=== PATIENT | male | born 1980 | race Hispanic/Latino ===

== ENCOUNTER 2019-04-26 09:45 | Emergency (ER) | payer OTHER, SELFPAY ==
[2019-04-26 10:39] LABS: BASOPHILS % (AUTO) 0.8 % (0.0-5.0); EOSINOPHILS % (AUTO) 3.6 % (0.0-8.0); HEMATOCRIT 35.4 % (42-54); LYMPHOCYTES % (AUTO) 27.7 % (21.0-51.0); MEAN CORPUSCULAR HEMOGLOBIN 29.4 pg (27.0-33.0); MEAN CORPUSCULAR HGB CONC 34.1 g/dL (32.0-36.0); MEAN CORPUSCULAR VOLUME 86.2 fL (79-99); MONOCYTES % (AUTO) 6.6 % (3.0-13.0); NEUTROPHILS % (AUTO) 61.3 % (40.0-77.0); PLATELET COUNT (AUTO) 383 K/uL (130-400); RED CELL DISTRIBUTION WIDTH 14.6 % (11.0-15.5); WHITE BLOOD COUNT (AUTO) 7.6 K/uL (4.8-10.8)
[2019-04-26 10:46] LABS: CREATININE 0.9 mg/dL (0.5-1.5); POTASSIUM 3.6 mmol/L (3.5-5.1)
[2019-04-26 10:51] LABS: INR 0.9 (0.85-1.15); PARTIAL THROMBOPLASTIN TIME 30.6 SEC (26.3-35.5); PROTHROMBIN TIME 9.5 SEC (9.6-11.6)
[2019-04-26] MEDS ORDERED: KETOROLAC TROMETHAMINE 15MG/ML ONE (10:57)
[2019-04-26 11:08] LABS: ALBUMIN 3.5 g/dL (3.5-5.0); BILIRUBIN,TOTAL 0.4 mg/dL (0.2-1.0); TOTAL PROTEIN, SERUM 7.6 g/dL (6.0-8.3)
[2019-04-26 12:35] LABS: AMPHET/METH SCREEN,URINE NEGATIVE (NEGATIVE); BARBITURATE SCREEN, URINE NEGATIVE (NEGATIVE); BENZODIAZEPINES SCREEN,URINE NEGATIVE (NEGATIVE); CANNABINOID SCREEN,URINE NEGATIVE (NEGATIVE); COCAINE SCREEN,URINE NEGATIVE (NEGATIVE); OPIATE SCREEN,URINE POSITIVE (NEGATIVE); PHENCYCLIDINE SCREEN,URINE NEGATIVE (NEGATIVE)
== END 2019-04-26 14:30 | disposition home or self-care (01) ==
LOC: EDH 09:45
DX: R07.89 Other chest pain (principal); E11.9 Type 2 diabetes mellitus without complications; I10 Essential (primary) hypertension; E78.00 Pure hypercholesterolemia, unspecified; Z72.0 Tobacco use
CPT/HCPCS: 36415; 71045; 80053; 80305; 82550; 83874; 84484 ×2; 85025; 85378; 85610; 85730; 93005 ×2; 96374; 99285; J1885

== ENCOUNTER 2021-10-20 10:08 | Emergency (ER) | payer SELFPAY ==
[~2021-10-20] VITALS: Ht 172.7 cm; Wt 124.7 kg
[2021-10-20 10:42] VITALS: BP 132/78
[2021-10-20] MEDS ORDERED: D-ME118S47 PO (11:41)
[2021-10-20] MEDS ORDERED: IBUP-2070 PO (11:41)
[2021-10-20] MEDS ORDERED: AZIT1PAC7 PO (11:41)
[2021-10-20] MEDS ORDERED: ALBUTEROL INHALER 90MCG/INH IH SCH (12:00)
[2021-10-20] MEDS ORDERED: IBUPROFEN 600 MG TABLET PO SCH (12:00)
== END 2021-10-20 12:01 | disposition home or self-care (01) ==
LOC: EDH 10:08
DX: J45.909 Unspecified asthma, uncomplicated (principal); B34.9 Viral infection, unspecified; Z20.822 Contact with and (suspected) exposure to COVID-19; E11.9 Type 2 diabetes mellitus without complications; E78.00 Pure hypercholesterolemia, unspecified; I10 Essential (primary) hypertension; Z79.1 Long term (current) use of non-steroidal anti-inflammatories (NSAID); Z88.5 Allergy status to narcotic agent
CPT/HCPCS: 87426; 87804; 87880

== ENCOUNTER 2022-12-27 09:28 | Emergency (ER) | payer OTHER ==
[~2022-12-27] VITALS: Ht 170.2 cm; Wt 127.0 kg
[~2022-12-27 09:28] MED LIST: AZIT1PAC7 PO; D-ME118S47 PO; IBUP-2070 PO
[2022-12-27] MEDS ORDERED: KETOROLAC 15MG/ML VIAL (15MG/ML) IV ONE (10:00)
[2022-12-27] MEDS ORDERED: 0.9%NACL 1000ML 1,000 ML IV ONE (10:00)
[2022-12-27] MEDS ORDERED: TETANUS/DIPHTHERIA TOXOID [ADULT] 0.5 ML VIAL IM ONE (10:00)
[2022-12-27 10:03] LABS: BASOPHILS % (AUTO) 0.4 % (0.0-5.0); EOSINOPHILS % (AUTO) 2.8 % (0.0-8.0); LYMPHOCYTES % (AUTO) 20.4 % (21.0-51.0); MEAN CORPUSCULAR HEMOGLOBIN 28.4 pg (27.0-33.0); MEAN CORPUSCULAR HGB CONC 31.5 g/dL (32.0-36.0); MEAN CORPUSCULAR VOLUME 90.1 fL (79-99); MONOCYTES % (AUTO) 6.3 % (3.0-13.0); NEUTROPHILS % (AUTO) 69.6 % (40.0-77.0); PLATELET COUNT (AUTO) 419 K/uL (130-400); RED BLOOD CELL COUNT(AUTO) 4.55 MIL/uL (4.50-6.20); RED CELL DISTRIBUTION WIDTH 14.7 % (11.0-15.5)
[2022-12-27 10:10] LABS: APPEARANCE,URINE CLEAR (CLEAR); BILIRUBIN,URINE NEGATIVE (NEGATIVE); GLUCOSE, URINE (UA) NEGATIVE (NEGATIVE); KETONES,URINE NEGATIVE (NEGATIVE); LEUKOCYTE ESTERASE ,URINE NEGATIVE Leu/uL (NEGATIVE); NITRATE,URINE NEGATIVE (NEGATIVE); OCCULT BLOOD,URINE NEGATIVE (NEGATIVE); PH,URINE 5.5 (5.0-8.0); PROTEIN,URINE NEGATIVE (NEGATIVE); UROBILINOGEN,URINE 0.2 mg/dL (0.2-1.0)
[2022-12-27 10:12] LABS: POTASSIUM 3.9 mmol/L (3.5-5.1)
[2022-12-27 10:17] LABS: ALBUMIN 3.8 g/dL (3.5-5.0); MAGNESIUM 2.1 mg/dL (1.80-2.40)
[2022-12-27 10:21] LABS: COLOR,URINE LIGHT-YELLOW (YELLOW)
[2022-12-27] MEDS ORDERED: BACITRACIN 28.4 GM OINT TP ONE (10:30)
[2022-12-27] MEDS ORDERED: BACITRACIN 1 EACH PACKET TP ONE (10:46)
[2022-12-27] MEDS ORDERED: BACI30OI6 TP (10:48)
[2022-12-27 11:29] VITALS: BP 128/75
== END 2022-12-27 11:31 | disposition home or self-care (01) ==
LOC: EDH 09:28
DX: S60.512A Abrasion of left hand, initial encounter (principal); S00.512A Abrasion of oral cavity, initial encounter; T75.4XXA Electrocution, initial encounter; R51.9 Headache, unspecified; M54.2 Cervicalgia; E11.9 Type 2 diabetes mellitus without complications; E78.00 Pure hypercholesterolemia, unspecified; I10 Essential (primary) hypertension; Z79.1 Long term (current) use of non-steroidal anti-inflammatories (NSAID); Z79.2 Long term (current) use of antibiotics; Z79.899 Other long term (current) drug therapy; Z88.8 Allergy status to other drugs, medicaments and biological substances; W86.8XXA Exposure to other electric current, initial encounter; Y93.89 Activity, other specified; Y92.89 Other specified places as the place of occurrence of the external cause; Y99.8 Other external cause status
CPT/HCPCS: 99285; 70450; 96374; 96361; 82550; 83735; 84484; 80053; 85025; 81003; 36415; 90714; 72125; 90471; 93005; J7030; J1885

== ENCOUNTER 2023-02-25 11:36 | Emergency (ER) | payer OTHER ==
[~2023-02-25] VITALS: Ht 182.9 cm; Wt 122.5 kg
[~2023-02-25 11:36] MED LIST changes: +BACI30OI6 TP
[2023-02-25 11:38] VITALS: BP 132/81
[2023-02-25] MEDS ORDERED: 0.9%NACL 1000ML 1,000 ML IV ONE (13:00)
[2023-02-25] MEDS ORDERED: CLINDAMYCIN IVPB 600MG/50ML 50 ML IV SCH (13:00)
== END 2023-02-25 13:56 | disposition left against medical advice (07) ==
LOC: EDH 11:36
DX: N63.0 Unspecified lump in unspecified breast (principal); N64.4 Mastodynia; I10 Essential (primary) hypertension; E11.9 Type 2 diabetes mellitus without complications; E78.00 Pure hypercholesterolemia, unspecified; Z79.899 Other long term (current) drug therapy; Z98.890 Other specified postprocedural states; Z88.8 Allergy status to other drugs, medicaments and biological substances
CPT/HCPCS: 99281

== ENCOUNTER 2023-03-14 11:03 | Emergency (ER) | payer OTHER ==
[~2023-03-14] VITALS: Ht 170.2 cm; Wt 122.5 kg
[2023-03-14 11:07] VITALS: BP 128/65
[2023-03-14] MEDS ORDERED: SULF1TAB42 PO (12:03)
[2023-03-14] MEDS ORDERED: CEPH500B PO (12:03)
== END 2023-03-14 12:04 | disposition left against medical advice (07) ==
LOC: EDH 11:03
DX: N64.4 Mastodynia (principal); N63.0 Unspecified lump in unspecified breast; I10 Essential (primary) hypertension; E11.9 Type 2 diabetes mellitus without complications; E78.00 Pure hypercholesterolemia, unspecified; G89.29 Other chronic pain; Z79.899 Other long term (current) drug therapy; Z98.890 Other specified postprocedural states; Z88.5 Allergy status to narcotic agent
CPT/HCPCS: 71045

== ENCOUNTER → 2024-07-05 | Outpatient (CLI) | payer SELFPAY ==
[~2024-07-05] MED LIST changes: +BROM118S48 PO; +CEPH500B PO; -D-ME118S47 PO; +SULF1TAB42 PO
== END | disposition home or self-care (01) ==
LOC: RAH 15:27
PROVIDERS: ATTEND Family Medicine
DX: M47.817 Spondylosis without myelopathy or radiculopathy, lumbosacral region (principal); M54.50 Low back pain, unspecified; Z98.890 Other specified postprocedural states
CPT/HCPCS: 72100

== ENCOUNTER 2025-04-01 13:34 | Emergency (ER) | payer OTHER ==
[~2025-04-01] VITALS: Ht 170.2 cm; Wt 122.5 kg
[2025-04-01 14:03] VITALS: BP 103/72; PULSE 76; RESP 16; TEMP 98.2; O2SAT 96
[2025-04-01 14:09] LABS: RAPID GROUP A STREP negative (NEGATIVE)
[2025-04-01 14:14] LABS: SARS-CoV-2, RNA, NAAT NEGATIVE SARS CoV-2 (NEGATIVE)
[2025-04-01 14:19] LABS: INFLUENZA TYPE A Negative For Type A (NEGATIVE); INFLUENZA TYPE B Negative For Type B (NEGATIVE)
--- NOTE | 2025-04-01 15:08 | HMCIMG ---
EXAM: CR Chest, 1 View. CLINICAL HISTORY: SOB COMPARISON: None provided. FINDINGS: LUNGS: The lungs show no infiltrate or other acute finding. PLEURAL SPACES: No evidence of pleural effusion or pneumothorax. MEDIASTINUM: Cardiac size and mediastinal contours within normal limits. BONES: No aggressive appearing osseous lesion seen. Stimulator leads project over the thoracic central canal. IMPRESSION: No acute cardiopulmonary pathology is evident. /Orick
[2025-04-01] MEDS ORDERED: PRED10TA3 PO (15:49)
[2025-04-01] MEDS ORDERED: ALBUHFA IH (15:49)
[2025-04-01] MEDS ORDERED: AZIT250T9 PO (15:49)
--- NOTE | 2025-04-01 15:49 | ERN ---
General Chief Complaint: Cough Stated Complaint: COUGH, CONGESTION, SOB W/ COUGH Time Seen by MD: 14:09 History of Present Illness Initial Comments 45-year-old male came in for cough. Allergies: Coded Allergies: fentanyl (Verified Allergy, Unknown, 04/26/19) Home Meds Active Scripts Sulfamethoxazole/Trimethoprim (Bactrim Ds Tablet) 1 Each Tablet, 1 TAB PO BID for 7 Days, #14 TAB 0 Refills Prov:ANALILIA BERNAL V [employer] 03/14/23 Cephalexin Monohydrate (Keflex) 500 Mg Cap, 500 MG PO QID for 7 Days, #28 CAP Prov:ANALILIA BERNAL V [employer] 03/14/23 Bacitracin (Bacitracin) 28.4 Gm Oint...g., 28.4 GM TP TID, #1 TUBE Prov:PAMELA TINAJERO [facility] 12/27/22 Ibuprofen (Ibuprofen) 600 Mg Tablet, 600 MG PO Q6H PRN for PAIN, #30 TAB Prov:ROSARIO MEJIA MD 10/20/21 D-Methorphan Hb/P-Epd HCl/Bpm (Bromfed Dm Cough Syrup) 118 Ml Syrup, 10 ML PO QID, #120 ML Prov:ROSARIO MEJIA MD 10/20/21 Azithromycin (Azithromycin) 1 Gm Packet, 1 GM PO AD, #1 PKT Prov:ROSARIO MEJIA MD 10/20/21 Past Medical History Past Medical History: Depression, Diabetes-Type II, High Cholesterol, Hypertension Medical History Other: CHRONIC PAIN:MORPHINE DAILY Past Surgical History: Other Surgical History Other: SPINAL SURGERY 2003 Social History Social History: Negative, Lives with family ROS Dictation Cough Physical Exam Physical Exam Dictation Vital Signs reviewed General Appearance: Alert, oriented x 3, no acute distress, well developed, nourished. Head and Face: non-traumatic. Eyes: PERRL, pink conjunctivas, eyelid no trauma, anterior chamber with arcus senilis. Ears: Pinnas intact and no signs of trauma or erythema ear canals clear and no discharge TM no erythema Nose: No discharge, no bleeding. Oropharynx: Mouth normal, tongue pink, pharynx clear,no erythema, tonsils no exudates, no abscesses noted, mucous membrane moist Neck: Supple, non-tender, no thyromegaly, no masses, no JVD, no bruits Breast:Deferred Chest:No tenderness, no crepitus, no paradoxical movement, no retractions Lungs:Clear, well-ventilated, symmetric, no rales, no wheezing, no rhonchi, no stridor, good breath sounds bilaterally Heart: Regular rate, regular rhythm, no murmur, no gallops Vascular: no peripheral edema, Abdomen: Soft, positive bowel sounds, nondistended, no guarding, nontender, no rebound, no masses no hepatomegaly, no splenomegaly, no Garcia's sign, no hernias. Rectal: Deferred Genital: Deferred Neurological: Normal speech, motor function intact, sensory function intact Musculoskeletal: Neck nontender, full range of motion, back nontender, full range of motion, Extremities: nontender, full range of motion Skin: Color pink, dry, no turgor, no rash, no lacerations, no abrasions, no contusions. Lymphatic: Deferred Results Laboratory and Microbiology Lab and Micro Result Laboratory Tests Test 04/01/25 13:51 Influenza Type A Antigen Negative For Type A Influenza Type B Antigen Negative For Type B SARS-CoV-2, RNA, NAAT NEGATIVE SARS CoV-2 Group A Streptococcus Rapid negative (NEGATIVE) MDM MDM: Differential diagnosis: There are no social concerns with this patient. Prescription drug management Prescriptions will include: Medical management and examination interpretation discussions were had by me with other qualified healthcare professionals as indicated for the patient's care. ED Course Orders Procedure Category Date Status Time Covid Rna Naat LAB 04/01/25 Complete 13:39 Influenza Type A & B, LAB 04/01/25 Complete Rapid 13:39 Rapid (Group A Strep) LAB 04/01/25 Complete 13:39 Chest 1vw RAD 04/01/25 Resulted 13:39 Vital Signs Date Time Temp Pulse Resp B/P (MAP) Pulse Ox O2 Delivery O2 Flow Rate FiO2 04/01/25 14:03 98.2 76 16 103/72 96 Room Air* 0 21 04/01/25 13:35 98.2 76 16 103/72 96 Room Air 0 DX & DISP Disposition: Discharge Departure Impression: Primary Impression: Bronchitis Condition: Stable Scripts Prednisone (Prednisone) 10 Mg Tablet 1 TAB PO BID for 5 Days, #10 TAB 0 Refills Prov: RADHA VAUGHN MD 04/01/25 Albuterol Sulfate (Ventolin Hfa/Proventil Hfa/Proair Hfa) 90 Mcg Puff 2 PUFF IH BID for 7 Days, #1 INHALER 0 Refills Prov: RADHA VAUGHN MD 04/01/25 Azithromycin (Azithromycin) 250 Mg Tablet 1 TAB PO AD for 5 Days, #6 TAB 0 Refills 2 the first day followed by 1 for days 2-5 Prov: RADHA VAUGHN MD 04/01/25 Referrals: DULCE MARIA FLOWERS MD (PCP) RADHA VAUGHN MD Apr 01, 2025 15:49
[2025-04-01] MEDS: cefTRIAXone 500MG VIAL IM SCH (16:10)
== END 2025-04-01 16:15 | disposition home or self-care (01) ==
LOC: EDH 13:34
DX: J40 Bronchitis, not specified as acute or chronic (principal); E11.9 Type 2 diabetes mellitus without complications; E78.00 Pure hypercholesterolemia, unspecified; I10 Essential (primary) hypertension; Z88.5 Allergy status to narcotic agent; Z20.822 Contact with and (suspected) exposure to COVID-19; Z79.899 Other long term (current) drug therapy
CPT/HCPCS: 99284; 71045; 87635; 87880; 87804 ×2; 96372; J0696

== ENCOUNTER 2025-05-30 12:31 | Emergency (ER) | payer SELFPAY ==
[~2025-05-30] VITALS: Ht 170.2 cm; Wt 127.0 kg
[~2025-05-30 12:31] MED LIST changes: +ALBUHFA IH; +AZIT250T9 PO; +IBUP-1492 PO; -IBUP-2070 PO; +PRED10TA3 PO
--- NOTE | 2025-05-30 12:37 | ERN ---
ED Note History of Present Illness Stated Complaint: SOB Chief Complaint: Shortness of Breath Time Seen by MD: 12:35 Dictation: PATIENT IS A 45-YEAR-OLD ASTHMATIC MALE COMING IN TODAY WITH SHORTNESS A BREATH LOSS OF TASTE AND SMELL OVER THE LAST TWO DAYS. NO FEVER NO CHILLS. STATES HE WAS EXPOSED TO COVID IN HIS WORRIED HE MAY HAVE COVID. STATES HIS PRIMARY CARE DOCTOR IS OUT OF TOWN. HAS BEEN USING HIS RESCUE INHALER Allergies: Coded Allergies: fentanyl (Verified Allergy, Unknown, 04/26/19) Home Meds Active Scripts Prednisone (Prednisone) 10 Mg Tablet, 1 TAB PO BID for 5 Days, #10 TAB 0 Refills Prov:RADHA VAUGHN MD 04/01/25 Albuterol Sulfate (Ventolin Hfa/Proventil Hfa/Proair Hfa) 90 Mcg Puff, 2 PUFF IH BID for 7 Days, #1 INHALER 0 Refills Prov:RADHA VAUGHN MD 04/01/25 Azithromycin (Azithromycin) 250 Mg Tablet, 1 TAB PO AD for 5 Days, #6 TAB 0 Refills 2 the first day followed by 1 for days 2-5 Prov:RADHA VAUGHN MD 04/01/25 Sulfamethoxazole/Trimethoprim (Bactrim Ds Tablet) 1 Each Tablet, 1 TAB PO BID for 7 Days, #14 TAB 0 Refills Prov:ANALILIA BERNAL V [facility] 03/14/23 Cephalexin Monohydrate (Keflex) 500 Mg Cap, 500 MG PO QID for 7 Days, #28 CAP Prov:ANALILIA BERNAL V [facility] 03/14/23 Bacitracin (Bacitracin) 28.4 Gm Oint...g., 28.4 GM TP TID, #1 TUBE Prov:PAMELA TINAJERO [employer] 12/27/22 Ibuprofen (Ibuprofen) 600 Mg Tablet, 600 MG PO Q6H PRN for PAIN, #30 TAB Prov:ROSARIO MEJIA MD 10/20/21 D-Methorphan Hb/P-Epd HCl/Bpm (Bromfed Dm Cough Syrup) 118 Ml Syrup, 10 ML PO QID, #120 ML Prov:ROSARIO MEJIA MD 10/20/21 Azithromycin (Azithromycin) 1 Gm Packet, 1 GM PO AD, #1 PKT Prov:ROSARIO MEJIA MD 10/20/21 Past Medical History Past Medical History: Asthma, Diabetes-Type II, High Cholesterol, Hypertension Additional Past Medical Hx: CHRONIC PAIN:MORPHINE DAILY Surgical History: Other Surgical History Other: back sx Social History: Negative, Lives with family RN Note Reviewed/Agreed w/PFSH: Yes Review of System Dictation CONSTITUTIONAL: NEGATIVE EXCEPT FOR HPI HEAD/FACE: NEGATIVE EXCEPT FOR HPI FEVER CHILLS EENT: NEGATIVE EXCEPT FOR HPI RESPIRATORY: NEGATIVE EXCEPT FOR HPI SOB GASTROINTESTINAL/ABDOMINAL: NEGATIVE EXCEPT FOR HPI GENITOURINARY: NEGATIVE EXCEPT FOR HPI MUSCULOSKELETAL: NEGATIVE EXCEPT FOR HPI INTEGUMENTARY: NEGATIVE EXCEPT FOR HPI NEUROLOGICAL/PSYCH: NEGATIVE EXCEPT FOR HPI HEMATOLOGIC/LYMPHATIC: NEGATIVE EXCEPT FOR HPI ALL SYSTEMS NEGATIVE, EXCEPT NOTED ABOVE. 13 POINT REVIEW OF SYSTEMS ASSESSED AND ALL NEGATIVE EXCEPT FOR ABOVE. Initial Vital Sign VS Vital Signs Date Time Temp Pulse Resp B/P (MAP) Pulse Ox O2 Delivery O2 Flow Rate FiO2 05/30/25 12:33 98.2 88 20 113/69 96 Room Air 0 05/30/25 12:35 21 Physical Exam Dictation VITAL SIGNS REVIEWED GENERAL APPEARANCE: ALERT, ORIENTED X 3, MILD ACUTE DISTRESS, WELL DEVELOPED, NOURISHED. HEAD AND FACE: NON-TRAUMATIC. EYES: PERRL, PINK CONJUNCTIVAS, EYELID NO TRAUMA, ANTERIOR CHAMBER WITH ARCUS SENILIS. EARS: PINNAS INTACT AND NO SIGNS OF TRAUMA OR ERYTHEMA EAR CANALS CLEAR AND NO DISCHARGE TM NO ERYTHEMA NOSE: CLEAR DISCHARGE, NO BLEEDING. OROPHARYNX: MOUTH NORMAL, TONGUE PINK, PHARYNX CLEAR,NO ERYTHEMA, TONSILS NO EXUDATES, NO ABSCESSES NOTED, MUCOUS MEMBRANE MOIST NECK: SUPPLE, NON-TENDER, NO THYROMEGALY, NO MASSES, NO JVD, NO BRUITS BREAST:DEFERRED CHEST:NO TENDERNESS, NO CREPITUS, NO PARADOXICAL MOVEMENT, NO RETRACTIONS LUNGS:CLEAR, WELL-VENTILATED, SYMMETRIC, NO RALES, NO WHEEZING, NO RHONCHI, NO STRIDOR, GOOD BREATH SOUNDS BILATERALLY CLEAR HEART: REGULAR RATE, REGULAR RHYTHM, NO MURMUR, NO GALLOPS VASCULAR: NO PERIPHERAL EDEMA, ABDOMEN: SOFT, POSITIVE BOWEL SOUNDS, NONDISTENDED, NO GUARDING, NONTENDER, NO REBOUND, NO MASSES NO HEPATOMEGALY, NO SPLENOMEGALY, NO MANCIA'S SIGN, NO HERNIAS. RECTAL: DEFERRED GENITAL: DEFERRED NEUROLOGICAL: NORMAL SPEECH, MOTOR FUNCTION INTACT, SENSORY FUNCTION INTACT MUSCULOSKELETAL: NECK NONTENDER, FULL RANGE OF MOTION, BACK NONTENDER, FULL RANGE OF MOTION, EXTREMITIES: NONTENDER, FULL RANGE OF MOTION SKIN: COLOR PINK, DRY, NO TURGOR, NO RASH, NO LACERATIONS, NO ABRASIONS, NO CONTUSIONS. LYMPHATIC: DEFERRED Results (Laboratory/Radiology) Laboratory/Radiology Laboratory Tests Test 05/30/25 12:38 SARS-CoV-2 Antigen (Rapid) POSITIVE FOR SARS AG Labs Reviewed?: Yes ED Course ED Course Orders Procedure Category Date Status Time Dexamethasone 4mg/Ml PHA 05/30/25 Complete 1ml Vial (Dexametha 13:00 Covid19 (Sars Antigen LAB 05/30/25 Complete Rapid) 12:36 Albuterol 0.083% PHA 05/30/25 Complete 2.5mg/3ml (Proventil 13:00 Current Medications Medications (Trade) Dose Ordered Sig/Kevin Route PRN Reason Start Time Stop Time Status Last Admin Dose Admin Albuterol Sulfate (Proventil 0.083% 2.5mg/3ml) 5 mg ONCE ONCE IH 05/30/25 13:00 05/30/25 13:01 DC 05/30/25 13:15 Dexamethasone Sodium Phosphate (dexaMETHasone 4MG/ML 1ML VIAL) 8 mg ONCE ONCE IM 05/30/25 13:00 05/30/25 13:01 DC 05/30/25 12:52 Vital Signs Date Time Temp Pulse Resp B/P (MAP) Pulse Ox O2 Delivery O2 Flow Rate FiO2 05/30/25 13:57 98.2 88 18 118/65 97 Room Air* 0 21 05/30/25 13:16 89 18 05/30/25 12:35 98.2 88 20 113/69 96 Room Air* 0 21 05/30/25 12:33 98.2 88 20 113/69 96 Room Air 0 1420/PATIENT DISCHARGED HOME SARS COVID POSITIVE DIAGNOSIS. GIVEN MEDROL DOSEPAK AND ALBUTEROL TOLD TO SEE HIS DOCTOR IN THE NEXT 1-2 DAYS INCREASE FLUID INTAKE. Medical Decision Making MDM MEDICAL DECISION-MAKING BASED ON TREATMENT FOR SHORTNESS A BREATH WITH DECADRON AND ALBUTEROL SARS COVID TEST PATIENT COVID 19 POSITIVE DISCHARGED HOME WITH ALBUTEROL INHALER AND MEDROL DOSEPAK TOLD SEE HIS PRIMARY CARE DOCTOR NEXT 2-3 DAYS AND INCREASE HIS FLUIDS. DX & DISP Disposition: Discharge Departure Impression: Primary Impression: COVID-19 virus infection Additional Impression: Shortness of breath Condition: Stable Scripts Methylprednisolone (Medrol) 4 Mg Tab.ds.pk 1 TAB PO AD for 6 Days, #21 TAB 0 Refills 6 on day 1 then reduce by one tablet daily until gone Prov: NELLY HERNANDEZ EGG SEPARATOR 05/30/25 Albuterol Sulfate (Ventolin Hfa/Proventil Hfa/Proair Hfa) 90 Mcg Puff 2 PUFF IH Q4H for WHEEZING, #1 INHALER 0 Refills Prov: NELLY HERNANDEZ EGG SEPARATOR 05/30/25 Additional Instructions: FOLLOW-UP WITH PRIMARY CARE PROVIDER IN 1 TO 2 DAYS. TAKE MEDICATIONS DIRECTED HERE IN THE EMERGENCY ROOM. OKAY TO CONTINUE HOME MEDICATIONS UNLESS OTHERWISE DISCUSSED DURING YOUR VISIT IN THE EMERGENCY ROOM TODAY. RETURN TO YOUR NEAREST EMERGENCY ROOM IF SYMPTOMS WORSEN OR IF THERE IS NO IMPROVEMENT. CALL 911 IF YOU NEED IMMEDIATE ASSISTANCE. TAKE TYLENOL OR MOTRIN [id number] NEEDED AND IF NO CONTRAINDICATIONS ARE PRESENT. INCREASE ORAL HYDRATION. A WOUND CULTURE OR URINE CULTURE WAS ORDERED HERE IN THE EMERGENCY ROOM DEPARTMENT PLEASE FOLLOW-UP WITH PRIMARY CARE PROVIDER AND ADVISE THEM TO GET REPEAT PORTS FROM OUR FACILITY. IF YOU HAD ANY SEVERINO WRAP/SPLINTS THAT WERE APPLIED HERE, PLEASE DO NOT REMOVE THEM UNTIL YOU SEE YOUR PRIMARY CARE OR SPECIALTY. USE ALBUTEROL INHALER EVERY 4 HOURS WHILE AWAKE FOR THE NEXT THREE DAYS. INCREASE YOUR WATER INTAKE. TAKE TYLENOL OR MOTRIN [id number] NEEDED FOR FEVER PAIN. TAKE MEDROL DOSEPAK DIRECTED UNTIL GONE AND SEE YOUR PRIMARY CARE DOCTOR FOR FOLLOW UP AND MANAGEMENT Referrals: DULCE MARIA FLOWERS MD (PCP) Time of Disposition: 14:21 I have reviewed the case, and I agree with, Diagnosis and Plan NELLY HERNANDEZ NP May 30, 2025 12:37
[2025-05-30] MEDS: ALBUTEROL 0.083% 2.5 MG/3 ML INH IH ONE (13:15)
[2025-05-30 13:16] VITALS: PULSE 89; RESP 18
[2025-05-30 13:57] VITALS: BP 118/65; PULSE 88; RESP 18; TEMP 98.2; O2SAT 97
[2025-05-30] MEDS ORDERED: METH4TAB3 PO (14:22)
[2025-05-30] MEDS ORDERED: ALBUHFA IH (14:22)
== END 2025-05-30 14:45 | disposition home or self-care (01) ==
LOC: EDH 12:31 → EEVIPCON 12:31 → EDH 14:45
DX: U07.1 COVID-19 (principal); R06.02 Shortness of breath; E11.9 Type 2 diabetes mellitus without complications; E78.00 Pure hypercholesterolemia, unspecified; I10 Essential (primary) hypertension; J45.909 Unspecified asthma, uncomplicated; Z79.52 Long term (current) use of systemic steroids; Z88.5 Allergy status to narcotic agent
CPT/HCPCS: 99283; 87426; 96372; 94640; J1100